=== PATIENT | female | born 1985 | race Caucasian/White ===

== ENCOUNTER → 2021-01-16 13:31 | Outpatient (CLI) | payer BC, SELFPAY ==
--- NOTE | ~2021-01-16 | US_ITS ---
EXAMINATION: US transvaginal DATE: 01/16/2021 13:55 INDICATION: Pelvic and perineal pain TECHNIQUE: Multiple endovaginal sonographic images of the pelvis were obtained. COMPARISON: 03/31/2019 FINDINGS: The uterus measures 7.8 x 3.6 x 4.8 cm. The endometrial complex measures 5 mm. An IUD is in expected location. The right ovary measures 3.5 x 2.4 x 2.8 cm. The left ovary measures 3.1 x 2.4 x 2.6 cm. There is normal vascular flow in the ovaries. There is no free fluid in the pelvis. IMPRESSION: 1. No sonographic correlate for the patient's symptoms. IUD in expected position. Reviewed, dictated and finalized at location B. IMPRESSION: 1. No sonographic correlate for the patient's symptoms. IUD in expected positio n.
== END ==
PROVIDERS: PCP Internal Medicine; Visit Provider Nurse Practitioner
DX: R10.2 Pelvic and perineal pain (principal); Z97.5 Presence of (intrauterine) contraceptive device
CPT/HCPCS: 76830